=== PATIENT | male | born 1980 | race Caucasian/White ===

== ENCOUNTER → 2017-12-12 | Outpatient (REF) | payer OTHER ==
[~2017-12-12] MED LIST: ASPI-719 PO; HYD2 PO; INDO50CA92 PO; INDOMETHACIN; KET10 PO; LOR5 PO; LOR75 PO; METH54TA10 PO; PROP40TA45 PO; QUE25 PO; QUET50TA21 PO
[2017-12-12 13:43] LABS: PLATELET COUNT, AUTOMATED 273 K/uL (150-450)
== END ==
PROVIDERS: ATTEND Nurse Practitioner Family
DX: R53.83 Other fatigue (principal)
CPT/HCPCS: 82040; 82247; 82310; 82374; 82435; 82565; 82947; 84075; 84132; 84155; 84295; 84450; 84460; 84520; 85025